=== PATIENT | male | born 1960 | race Caucasian/White ===

== ENCOUNTER → 2020-03-23 | Outpatient (CLI) | payer OTHER ==
[~2020-03-23] MED LIST: DARVOCET N 1001 TAB PO; HYDROCODONE BIT1 T11 PO; KEFLEX500 MG PO; LEVOFLOXACIN500 MG PO; TARKA PO
== END | disposition home or self-care (01) ==
LOC: COVID19 14:41
DX: Z20.828 Contact with and (suspected) exposure to other viral communicable diseases (principal)